=== PATIENT | female | born 1990 ===

== ENCOUNTER 2021-08-15 17:51 | Emergency (ER) | payer SELFPAY ==
[2021-08-15] MEDS ORDERED: ACETAMINOPHEN 500 MG TAB PO ONE (21:33)
[2021-08-15] MEDS ORDERED: PROCHLORPERAZINE EDISYLATE 10 MG/2 ML VIAL IV ONE (21:33)
[2021-08-15 22:14] LABS: Hematocrit 34.9 % (30.3-42.9); Hemoglobin 11.4 gm/dl (10.1-14.3); Mean Corpuscular HGB Conc 33 % (30-34); Mean Corpuscular Volume 83 fl (79-97); Platelet Count 392 K/mm3 (140-440); Red Cell Distribution Width 14.1 % (13.2-15.2)
[2021-08-15 22:35] LABS: Alanine Aminotransferase 61 units/L (7-56); Albumin 3.5 g/dL (3.9-5); Blood Urea Nitrogen 4 mg/dL (7-17); Calcium 8.7 mg/dL (8.4-10.2); Hemolysis Index 3
[2021-08-15 22:52] LABS: BUN/Creatinine Ratio 10
[2021-08-16 00:23] LABS: Bilirubin,Urine NEG (Negative); Blood,Urine NEG (Negative); Color,Urine Yellow (Yellow); Mucus,Urine 1+ /HPF; Protein,Urine <15 mg/dL mg/dL (Negative); Urobilinogen,Urine < 2.0 mg/dL (<2.0)
[2021-08-16 01:12] VITALS: BP 84/54
--- NOTE | 2021-08-16 01:24 | Emergency Department Report ---
ED General Adult HPI - General Chief complaint: Upper Respiratory Infection Stated complaint: NAUSEA AND VOMITING Source: patient Mode of arrival: Ambulatory Limitations: No Limitations - History of Present Illness MD Complaint: Body aches and pains; dry cough, nasal and sinus congestion -: Sudden, week(s) (1) Location: head, chest, lower extremity (bilateral legs) Radiation: extremity (bilateral legs) Severity scale (0 -10): 5 Quality: aching, sharp Consistency: intermittent Improves with: none Worsens with: movement Associated Symptoms: denies other symptoms, cough, loss of appetite, malaise, nausea/vomiting. denies: confusion, chest pain, diaphoresis, fever/chills, headaches, rash, seizure, shortness of breath, syncope, weakness Treatments Prior to Arrival: none - Related Data Previous Rx's Medication Instructions Recorded Last Taken Type Acetaminophen [Tylenol] 500 mg PO Q6HR PRN #40 tablet 08/16/21 Unknown Rx Azithromycin [Zithromax Z-CARMEN] 250 mg PO DAILY #6 tablet 08/16/21 Unknown Rx Cetirizine HCl [Zyrtec 10mg tab] 10 mg PO DAILY #30 tablet 08/16/21 Unknown Rx Promethazine [Phenergan] 25 mg PO Q6HR PRN #30 tab 08/16/21 Unknown Rx Allergies Allergy/AdvReac Type Severity Reaction Status Date / Time No Known Allergies Allergy Unverified 08/15/21 20:13 ED Review of Systems ROS: Stated complaint: NAUSEA AND VOMITING Other details as noted in HPI Constitutional: denies: chills, fever Eyes: denies: eye pain, eye discharge, vision change ENT: congestion. denies: ear pain, throat pain Respiratory: cough. denies: shortness of breath, wheezing Cardiovascular: denies: chest pain, palpitations Endocrine: no symptoms reported Gastrointestinal: abdominal pain, nausea, vomiting. denies: diarrhea Genitourinary: denies: urgency, dysuria, discharge Musculoskeletal: back pain, arthralgia, myalgia. denies: joint swelling Skin: denies: rash, lesions Neurological: headache. denies: weakness, paresthesias Psychiatric: denies: anxiety, depression Hematological/Lymphatic: denies: easy bleeding, easy bruising ED Past Medical Hx - Past Medical History Previous Medical History?: No - Surgical History Past Surgical History?: No - Medications Home Medications: Home Medications Medication Instructions Recorded Confirmed Last Taken Type Acetaminophen [Tylenol] 500 mg PO Q6HR PRN #40 tablet 08/16/21 Unknown Rx Azithromycin [Zithromax Z-CARMEN] 250 mg PO DAILY #6 tablet 08/16/21 Unknown Rx Cetirizine HCl [Zyrtec 10mg tab] 10 mg PO DAILY #30 tablet 08/16/21 Unknown Rx Promethazine [Phenergan] 25 mg PO Q6HR PRN #30 tab 08/16/21 Unknown Rx ED Physical Exam - General Limitations: No Limitations General appearance: alert, in no apparent distress - Head Head exam: Present: atraumatic, normocephalic, normal inspection - Eye Eye exam: Present: normal appearance, PERRL, EOMI Pupils: Present: normal accommodation - ENT ENT exam: Present: normal orophraynx, mucous membranes moist, TM's normal bilaterally, normal external ear exam, other (Grossly congested nasal passages) - Neck Neck exam: Present: normal inspection, full ROM. Absent: tenderness - Respiratory Respiratory exam: Present: normal lung sounds bilaterally. Absent: respiratory distress, wheezes, rales, rhonchi, chest wall tenderness, accessory muscle use, prolonged expiratory - Cardiovascular Cardiovascular Exam: Present: regular rate, normal rhythm, normal heart sounds. Absent: systolic murmur, diastolic murmur, rubs, gallop - GI/Abdominal GI/Abdominal exam: Present: soft, normal bowel sounds, other (Gravid abdomen). Absent: tenderness, guarding, rebound, hyperactive bowel sounds, hypoactive bowel sounds - Extremities Exam Extremities exam: Present: normal inspection, full ROM, normal capillary refill - Back Exam Back exam: Present: normal inspection, full ROM. Absent: tenderness, CVA tenderness (R), CVA tenderness (L), muscle spasm, paraspinal tenderness, vertebral tenderness - Neurological Exam Neurological exam: Present: alert, oriented X3, CN II-XII intact, normal gait, reflexes normal - Psychiatric Psychiatric exam: Present: normal affect, normal mood - Skin Skin exam: Present: warm, dry, intact, normal color. Absent: rash ED Course Vital Signs 08/15/21 08/15/21 08/16/21 20:13 22:19 01:11 Temperature 98 F 98.0 F Pulse Rate 95 H 56 L Respiratory 18 17 18 Rate Blood Pressure 119/73 84/54 [Right] O2 Sat by Pulse 100 100 Oximetry 08/16/21 01:12 Temperature Pulse Rate Respiratory 18 Rate Blood Pressure [Right] O2 Sat by Pulse 100 Oximetry ED Medical Decision Making - Lab Data Result diagrams: 08/15/21 21:49 08/15/21 21:49 Critical care attestation.: If time is entered above; I have spent that time in minutes in the direct care of this critically ill patient, excluding procedure time. ED Disposition Clinical Impression: Acute upper respiratory infection, Nausea and vomiting in , Muscle spasm of both lower legs Acute bronchitis Qualifiers: Bronchitis organism: other organism Qualified Code(s): J20.8 - Acute bronchitis due to other specified organisms Disposition: HOME / SELF CARE / HOMELESS Is pt being admited?: No Does the pt Need Aspirin: No Condition: Stable Instructions: Acute Bronchitis (ED), Muscle Cramps and Spasms, [id number], Upper Respiratory Infection, Adult, [id number], Nausea and Vomiting, Adult, [id number], Morning Sickness, [id number], Acute Bronchitis, Adult, [id number] Additional Instructions: Todos los resultados de las pruebas de laboratorio fueron revisados ??y no son factibles. Por lo tanto, tome la medicacin segn lo recomendado, taylor muchos lquidos y yoko un seguimiento con hirsch mdico obstetra / gineclogo en 5 a 7 ogden para elgin reevaluacin. Regrese al servicio de urgencias de inmediato si los sntomas empeoran. Prescriptions: Acetaminophen [Tylenol] 500 mg PO Q6HR PRN #40 tablet PRN Reason: Pain , Severe (7-10) Promethazine [Phenergan] 25 mg PO Q6HR PRN #30 tab PRN Reason: Nausea Azithromycin [Zithromax Z-CARMEN] 250 mg PO DAILY #6 tablet Cetirizine HCl [Zyrtec 10mg tab] 10 mg PO DAILY #30 tablet Referrals: EDNIS ARGUETA MD [Staff Physician] - 3-5 Days Time of Disposition: : Print Language: ALBANIAN
[2021-08-16 01:39] LABS: Total Cells Counted 100
[2021-08-16 01:40] LABS: Platelet Estimate Consistent w Auto; RBC Morphology Normal
== END 2021-08-16 02:04 | disposition home or self-care (01) ==
LOC: ED 17:51
DX: O99.519 Diseases of the respiratory system complicating pregnancy, unspecified trimester (principal); J06.9 Acute upper respiratory infection, unspecified; O21.9 Vomiting of pregnancy, unspecified; O26.899 Other specified pregnancy related conditions, unspecified trimester; M62.831 Muscle spasm of calf; J20.8 Acute bronchitis due to other specified organisms
CPT/HCPCS: 36415; 80053; 81001; 85007; 85025; 96374; 99283; J0780